=== PATIENT | female | born 1990 | race Two or more races ===

== ENCOUNTER 2023-10-21 04:21 | Emergency (ER) | payer BC, OTHER ==
[~2023-10-21] VITALS: Ht 157.5 cm; Wt 77.1 kg
[2023-10-21 04:21] VITALS: BP 145/92; TEMP 98.1; O2SAT 98
[2023-10-21] MEDS ORDERED: IBUPROFEN 600 MG TABLET ONE ×2 (04:50→04:59)
[2023-10-21] MEDS: IBUPROFEN 600 MG TABLET PO ONE (04:52)
[2023-10-21] MEDS ORDERED: IBUP-1955 PO (04:54)
== END 2023-10-21 04:58 | disposition home or self-care (01) ==
LOC: ER 04:29
DX: G89.21 Chronic pain due to trauma (principal); V98.8XXD Other specified transport accidents, subsequent encounter